=== PATIENT | male | born 1950 | race Caucasian/White ===

== ENCOUNTER 2017-05-10 02:31 | Emergency (ER) | payer MEDICARE, MEDICAID ==
[2017-05-10] MEDS ORDERED: HYDROmorphone 1 MG/ML Syringe IVPUSH ONE (03:18)
[2017-05-10] MEDS ORDERED: Ondansetron 4 MG/2 ML SDV IV ONE (03:18)
[2017-05-10] MEDS ORDERED: Iopamidol 612 MG/ML 100 ML Bottle IVPUSH ONE ×2 (03:44→03:45)
--- NOTE | 2017-05-10 03:44 | EDM.PDOC ---
[id number]: ABD PAIN Time Seen by Provider: 05/10/17 02:45 Source of Information: Reports: Patient History Limitations: Reports: No Limitations - History of Present Illness INITIAL COMMENTS - FREE TEXT/NARRATIVE: ED with c/o severe abdominal pain and cramping, started after supper eating pork chop. worsened after eating peanut butter sandwich. Nausea no vomiting. No fever. Small bm tonight. Hx colon cancer with resection and reanastamosis. Gallbladder removed with repair surgery. Onset: Today Bilateral Abdominal Pain Score (Numeric/FACES): 7 - Related Data Allergies Allergy/AdvReac Type Severity Reaction Status Date / Time No Known Allergies Allergy Verified 05/15/17 14:14 Home Meds: Home Meds Aspirin [Adult Low Dose Aspirin EC] 81 mg PO DAILY 03/26/14 [History] Multivitamin with Minerals [Multivitamins with Minerals] 1 each PO DAILY [History] Omeprazole 20 mg PO DAILY 03/26/14 [History] Acetaminophen [Tylenol Extra Strength] 1 tab PO Q6H 05/05/16 [History] Diltiazem HCl [Cartia Xt] 1 tab PO DAILY 05/05/16 [History] Ibuprofen 1 tab PO Q6H 05/05/16 [History] atorvaSTATin [Lipitor] 1 tab PO BEDTIME 05/05/16 [History] Glucosamine/D3/Boswellia Paula [Osteo Bi-Flex Tablet] 1 tab PO BEDTIME 11/13/16 [History] Past Medical History - Past Health History Medical/Surgical History: Denies Medical/Surgical History HEENT History: Reports: None Cardiovascular History: Reports: Afib, High Cholesterol, Other (See Below) Other Cardiovascular History: LEG EDEMA Respiratory History: Reports: Bronchitis, Recurrent Gastrointestinal History: Reports: Other (See Below) Other Gastrointestinal History: hernia Genitourinary History: Reports: None Musculoskeletal History: Reports: Arthritis, Fracture Other Musculoskeletal History: nasal fx and left great toe fx, fx left ankle and right wrist. skull fx Neurological History: Reports: Migraines Psychiatric History: Reports: Addiction Other Psychiatric History: TOBACCO ABUSE Endocrine/Metabolic History: Reports: None Hematologic History: Reports: None Immunologic History: Reports: None Oncologic (Cancer) History: Reports: Colon Dermatologic History: Reports: None - Infectious Disease History Infectious Disease History: Reports: None - Past Surgical History Head Surgeries/Procedures: Reports: None HEENT Surgical History: Reports: None GI Surgical History: Reports: Cholecystectomy, Colonoscopy, Colostomy, Hernia Repair/Other, Polypectomy, Other (See Below) Social & Family History - Family History Family Medical History: Noncontributory - Tobacco Use Smoking Status *Q: Current Every Day Smoker Years of Tobacco use: 5 Packs/Tins Daily: 0.2 Used Tobacco, but Quit: No Month Tobacco Last Used: oct Second Hand Smoke Exposure: No - Caffeine Use Caffeine Use: Reports: Coffee, Soda Other Caffeine Use: 3 cups coffee, 4 pop daily - Alcohol Use Days Per Week of Alcohol Use: 0 - Recreational Drug Use Recreational Drug Use: No ED ROS GENERAL - Review of Systems Review Of Systems: ROS reveals no pertinent complaints other than HPI. ED EXAM, GI/ABD - Physical Exam Exam: See Below Exam Limited By: No Limitations General Appearance: Alert, Mild Distress Eyes: Bilateral: EOMI Ears: Normal External Exam Nose: Normal Inspection Throat/Mouth: Normal Inspection Head: Atraumatic, Other Neck: Normal Inspection Respiratory/Chest: No Respiratory Distress, Lungs Clear Cardiovascular: Normal Peripheral Pulses, Regular Rate, Rhythm GI/Abdominal Exam: No Abnormal Bruit (hyperactive on left, hypoactive and tympanic on right. Distended. Firm around previous stoma site. ) Course - Vital Signs Last Recorded V/S: Last Vital Signs Temp 97.8 F 05/10/17 05:37 Pulse 56 L 05/10/17 05:37 Resp 20 05/10/17 05:37 BP 124/74 05/10/17 05:37 Pulse Ox 97 05/10/17 05:37 - Orders/Labs/Meds Labs: Laboratory Tests 05/10/17 05/10/17 05/10/17 Range/Units 03:20 03:20 04:59 WBC 11.4 H (5.0-10.0) 10^3/uL RBC 5.20 (4.6-6.2) 10^6/uL Hgb 15.8 (14.0-18.0) g/dL Hct 46.9 (40.0-54.0) % MCV 90.2 (80-100) fL MCH 30.4 (27.0-34.0) pg MCHC 33.7 (33.0-35.0) g/dL Plt Count 218 (150-450) 10^3/uL Neut % (Auto) 65.3 (42.2-75.2) % Lymph % (Auto) 23.9 (20.5-50.1) % [place] % (Auto) 8.2 H (2-8) % Eos % (Auto) 2.2 (1.0-3.0) % Baso % (Auto) 0.4 (0.0-1.0) % Sodium 142 (135-145) mmol/L Potassium 4.0 (3.6-5.0) mmol/L Chloride 105 (101-111) mmol/L Carbon Dioxide 28.0 (21.0-31.0) mmol/L Anion Gap 13.0 BUN 13 (7-18) mg/dL Creatinine 1.1 (0.6-1.3) mg/dL Est Cr Clr Drug Dosing 70.05 mL/min Estimated GFR (MDRD) > 60 BUN/Creatinine Ratio 11.81 Glucose 99 (74-105) mg/dL Calcium 9.3 (8.4-10.2) mg/dl Total Bilirubin 0.5 (0.2-1.0) mg/dL AST 23 (10-42) IU/L ALT 23 (10-60) IU/L Alkaline Phosphatase 90 (42-121) IU/L Troponin I < 0.02 (0.00-0.02) ng/ml Total Protein 7.6 (6.7-8.2) g/dl Albumin 4.1 (3.2-5.5) g/dl Globulin 3.5 Albumin/Globulin Ratio 1.17 Amylase 36 (28-100) U/L Lipase 15 L (22-51) U/L Urine Color Yellow (YELLOW) Urine Appearance Clear (CLEAR) Urine pH 6.0 (5.0-9.0) Ur Specific [place] 1.010 (1.005-1.030) Urine Protein Negative (NEGATIVE) Urine Glucose (UA) Negative (NEGATIVE) Urine Ketones Negative (NEGATIVE) Urine Occult Blood Negative (NEGATIVE) Urine Nitrite Negative (NEGATIVE) Urine Bilirubin Negative (NEGATIVE) Urine Urobilinogen 0.2 (0.2-1.0) mg/dL Ur Leukocyte Esterase Negative (NEGATIVE) Urine RBC 0-5 /HPF Urine WBC 0-5 (0-5/HPF) /HPF Ur Epithelial Cells Occasional /HPF Urine Bacteria Few (0-FEW/HPF) /HPF Urine Mucus Few H /LPF Meds: Medications Discontinued Medications Generic Name Dose Route Start Last Admin Trade Name Dainelq PRN Reason Stop Dose Admin Hydromorphone HCl 0.5 mg 05/10/17 03:18 05/10/17 03:52 Dilaudid IVPUSH 05/10/17 03:19 0.5 mg ONETIME ONE Administration Iopamidol 100 ml 05/10/17 03:44 05/10/17 05:41 Isovue-300 (61%) IVPUSH 05/10/17 03:45 Not Given ONETIME ONE Iopamidol 100 ml 05/10/17 03:45 05/10/17 03:50 Isovue-300 (61%) IVPUSH 05/10/17 03:46 100 ml ONETIME ONE Administration Ondansetron HCl 4 mg 05/10/17 03:18 05/10/17 03:53 Zofran IV 05/10/17 03:19 4 mg ONETIME ONE Administration Departure - Departure Time of Disposition: 06:30 Disposition: DC/Tfer to Acute Hospital 02 Condition: Fair Clinical Impression: Small bowel obstruction - Discharge Information Forms: ED Department Discharge
[2017-05-10 03:48] LABS: CHLORIDE,CL 105 mmol/L (101-111); SODIUM,NA 142 mmol/L (135-145)
[2017-05-10 05:38] VITALS: BP 124/74
== END 2017-05-10 06:20 ==
LOC: DL.ED 02:31
DX: K56.60 Unspecified intestinal obstruction (principal); I48.91 Unspecified atrial fibrillation; E78.00 Pure hypercholesterolemia, unspecified; G43.909 Migraine, unspecified, not intractable, without status migrainosus; M19.90 Unspecified osteoarthritis, unspecified site; F17.210 Nicotine dependence, cigarettes, uncomplicated; Z90.49 Acquired absence of other specified parts of digestive tract; Z79.82 Long term (current) use of aspirin; Z79.899 Other long term (current) drug therapy; Z98.890 Other specified postprocedural states
CPT/HCPCS: 36415; 74177; 80053; 81001; 82150; 83690; 84484; 85025; 96374; 96375; 99285; J1170; J2405; Q9967

== ENCOUNTER 2017-07-02 06:44 | Inpatient (IN) | payer MEDICARE, OTHER, MEDICAID ==
[2017-07-02] MEDS: Lactated Ringers 1,000 ML IV SCH ×2 (07:30→10:44)
[2017-07-02] MEDS ORDERED: Midazolam 1 MG/ML 2 ML SDV ONE (07:47)
[2017-07-02] MEDS ORDERED: fentaNYL 100 MCG/2 ML SDV ONE ×2 (07:47→08:06)
[2017-07-02] MEDS ORDERED: ePHEDrine 50 MG/ML SDV ONE (07:47)
[2017-07-02] MEDS ORDERED: Phenylephrine 1% 10 MG/ML SDV ONE (07:47)
[2017-07-02] MEDS ORDERED: Succinylcholine 200 MG/10 ML MDV ONE (07:48)
[2017-07-02] MEDS ORDERED: Rocuronium 50 MG/5 ML Vial ONE (07:48)
[2017-07-02] MEDS ORDERED: Propofol 200 MG/20 ML SDV ONE (07:48)
[2017-07-02] MEDS ORDERED: Lidocaine 1% 50 MG/5 ML Syringe ONE (07:48)
[2017-07-02] MEDS ORDERED: Ketorolac 30 MG/ML SDV ONE (07:49)
[2017-07-02] MEDS ORDERED: Dexamethasone 4 MG/ML SDV ONE (07:49)
[2017-07-02] MEDS ORDERED: Ondansetron 4 MG/2 ML SDV ONE (07:49)
[2017-07-02] MEDS: Acetaminophen/oxyCODONE 325-5 MG Tab PO PRN ×3 (10:53→22:43)
[2017-07-02] MEDS: Morphine 4 MG/ML Syringe IVPUSH PRN ×4 (13:31→23:18)
[2017-07-02] MEDS: Sodium Chloride 0.9% 1,000 ML IV SCH (15:50)
--- NOTE | 2017-07-02 19:04 | OR ---
DATE: 07/02/2017 PREOPERATIVE DIAGNOSIS: Incisional hernia. POSTOPERATIVE DIAGNOSIS: Incisional hernia. PROCEDURE: Open repair of incisional hernia. ANESTHESIA: General. ESTIMATED BLOOD LOSS: Minimal. SPECIMEN: Hernia sac. INDICATION FOR PROCEDURE: This 66-year-old male had a colon cancer resected with an end colostomy. He then had a colostomy takedown to reattach him in continuity and has developed an incisional hernia at the ostomy takedown site. Two months ago, he had an episode where the hernia became incarcerated, and he was sent from [place] to [facility] for evaluation. They reduced the hernia and set him up for a hernia repair later, but this could be done in [place] instead of going all the way back to [facility]. OPERATIVE FINDINGS: Incisional hernia. PROCEDURE IN DETAIL: After adequate preparation, a transverse incision was made over the prior ostomy site. The scar area of the ostomy itself was cored out. This was taken down to the hernia sac which was then dissected free from the subcutaneous tissues. The hernia sac was opened, and some of the filmy adhesions of the bowel that were in the hernia sac which actually were quite significant were freed up, so that the small bowel could be returned back into the abdomen. The hernia sac was dissected free from the fascial edges, and the underlying attachment of the small bowel to the posterior rectus sheath was dissected free. This allowed adequate margins for closure of this defect without mesh. The hernia itself measured about 6 cm. Interrupted #1 Prolene sutures were used to close the muscle layer full-thickness in one layer. This took approximately 10 or 12 interrupted sutures. There was minimal bleeding throughout the case. No other complications. The subcutaneous hernia space was closed with 3-0 Vicryl, and Monocryl was used for the skin. The patient was taken to recovery room. [facility] /[id number]
[2017-07-02] MEDS: Ondansetron 4 MG/2 ML SDV IV PRN (21:11)
[2017-07-03] MEDS: Sodium Chloride 0.9% 1,000 ML IV SCH ×2 (02:02→12:36)
[2017-07-03] MEDS: Morphine 4 MG/ML Syringe IVPUSH PRN ×4 (02:12→13:39)
[2017-07-03] MEDS: Acetaminophen/oxyCODONE 325-5 MG Tab PO PRN ×4 (03:43→23:30)
[2017-07-03] MEDS: Ondansetron 4 MG/2 ML SDV IV PRN ×2 (07:33→19:49)
--- NOTE | 2017-07-03 08:58 | PCM.SN ---
- Free Text/Narrative Note: Pain still needs IV Morphine for control. Frequent burping and only tolerates PO liquids. Some ambulation but with accompanied nausea. A/ Stable POD#1 P/ Will still keep today until PO and pain controlled better.
[2017-07-03] MEDS: Sodium Chloride 0.9% 10 ML Syringe FLUSH PRN ×2 (13:58→19:49)
[2017-07-03] MEDS ORDERED: Succinylcholine 200 MG/10 ML MDV IV ONE (14:47)
[2017-07-03] MEDS ORDERED: Rocuronium 50 MG/5 ML Vial IV ONE (14:47)
[2017-07-03] MEDS ORDERED: Ketorolac 30 MG/ML SDV IVPUSH ONE (14:47)
[2017-07-03] MEDS ORDERED: Dexamethasone 4 MG/ML SDV IV ONE (14:47)
[2017-07-03] MEDS ORDERED: Midazolam 1 MG/ML 2 ML SDV IV ONE (14:47)
[2017-07-03] MEDS ORDERED: fentaNYL 100 MCG/2 ML SDV IV ONE (14:47)
[2017-07-03] MEDS ORDERED: Propofol 200 MG/20 ML SDV IV ONE (14:47)
[2017-07-03] MEDS ORDERED: Ondansetron 4 MG/2 ML SDV IV ONE (14:47)
[2017-07-03] MEDS ORDERED: Magnesium Hydroxide 400 MG/5 ML Susp 30 ML Cup PO ONE (22:08)
[2017-07-04] MEDS ORDERED: Sodium Chloride 0.9% 1,000 ML IV ONE (01:35)
[2017-07-04] MEDS: Morphine 4 MG/ML Syringe IVPUSH PRN (01:50)
--- NOTE | 2017-07-04 01:52 | PCM.SN ---
- Free Text/Narrative Note: Tonight this patient is now very distended, peripherally cool with moderate abdominal pain. Is POD#2 from incisional hernia repair. Abdominal xray shoes large amount of free air. Mostly likely has enterotomy leak. Could operate on him here at [facility] but do not have adequate post operative ventilator capability. Will transfer to [facility] in [place]. Dr Mueller accepted transfer.
[2017-07-04] MEDS ORDERED: Midazolam 1 MG/ML 2 ML SDV IV ONE (02:14)
[2017-07-04] MEDS ORDERED: Dexamethasone 4 MG/ML SDV IV ONE (02:14)
[2017-07-04] MEDS ORDERED: Ketorolac 30 MG/ML SDV IVPUSH ONE (02:14)
[2017-07-04] MEDS ORDERED: Succinylcholine 200 MG/10 ML MDV IV ONE (02:14)
[2017-07-04] MEDS ORDERED: Ondansetron 4 MG/2 ML SDV IV ONE (02:14)
[2017-07-04] MEDS ORDERED: Propofol 200 MG/20 ML SDV IV ONE (02:14)
[2017-07-04] MEDS ORDERED: Rocuronium 50 MG/5 ML Vial IV ONE (02:14)
[2017-07-04] MEDS ORDERED: fentaNYL 100 MCG/2 ML SDV IV ONE (02:14)
[2017-07-04 02:49] VITALS: BP 100/70
--- NOTE | 2017-07-04 11:34 | DISCH ---
INTRODUCTION: This 66-year-old male has a past medical history of sigmoid colon resection for carcinoma, this was initially done as a Michelle's procedure with an end colostomy. The colostomy was eventually taken down and reattached to incontinence. The patient developed a midline ventral hernia which was then repaired using mesh. Two months ago, he presented to [place] with incarcerated small bowel and ostomy site hernia and was transferred [facility], they reduced the hernia, and at that time, elected not to fix the hernia. He presented [facility], and in evaluation I felt this would be reasonable enough to repair as the patient has had a few episodes of small bowel obstruction symptoms. PAST MEDICAL HISTORY: Significant for his colon cancer. Workup to date seems to be clear. PAST SURGICAL HISTORY: Include besides the above colon resection, cholecystectomy. PHYSICAL EXAMINATION: Heart: Clear. Heart is normal sinus rhythm. Lungs: Clear. Abdomen: Soft. He has a palpable bulge in the ostomy site just to the left of the midline. Extremities: Normal. Neurologic: Intact. HOSPITAL COURSE: This patient was admitted to the hospital on 07/02 and underwent an open incisional hernia repair. The case seemed to go fairly well. There was only minimal adhesions except for around the fascial edge where there was some bowel stuck to the prior mesh replacement of the ventral hernia. This was able to be freed up and interrupted #1 Prolene sutures were used to close this incision. Postoperatively, the patient seemed stable and fine until the morning of 07/03 when he had increased distention and mild abdominal pain. The patient however did not have a fever. His p.o. liquid intake was fine and he was advanced to a regular diet. By the evening however of 07/03, the patient was markedly distended. Examination showed that he was tympanitic throughout. White blood cell count was normal at that time, as was his hemoglobin, but the KUB and upright abdominal series x-ray showed massive amount of free air. This would indicate he has an enterotomy somewhere, either an enterotomy was made while freeing up the bowel sharply from the fascial edges or some of the bowel was caught in the closure stitches of the hernia. This patient however needs to be transferred as we could perform a surgery here, exploratory laparotomy to evaluate this. However, postoperatively, there was a significant chance that he may be ventilator dependent which is unavailable here at [place]. I contacted [facility] at [place]. Dr. Mueller is the surgeon applications project manager, and accepted the patient. He was transferred by ground ambulance to [facility]. [facility] /[id number]
--- NOTE | 2017-07-13 10:27 | EKG ---
07/02/2017 - SURESH POLLOCK - FINDINGS: EKG showed normal sinus rhythm. QT interval is prolonged. There is Q-wave in the inferior leads suggestive of prior myocardial infarction. Nonspecific T-wave changes in the anteroseptal leads. [facility] /[id number]
== END 2017-07-04 02:15 | disposition home or self-care (01) | DRG 354 ==
LOC: DL.SDS 06:44 → EDSTATUS 08:00 → DL.MS 10:45
PROVIDERS: ADMIT Surgery; ATTEND Surgery
PROC: 0WQF0ZZ Repair Abdominal Wall, Open Approach (ICD-10-PCS; principal; 2017-07-02)
DX: K43.0 Incisional hernia with obstruction, without gangrene (principal); K91.89 Other postprocedural complications and disorders of digestive system; Z85.038 Personal history of other malignant neoplasm of large intestine; Z79.82 Long term (current) use of aspirin; Z79.899 Other long term (current) drug therapy
CPT/HCPCS: 93005; 00830; 93010; J7120 ×2; 36415; 49560; 74020; 85027; 88302; A9270-GY; J0330; J1100; J1885; J2250; J2270; J2405; J2704; J3010; J7030; J7050

== ENCOUNTER 2018-02-08 04:04 | Emergency (ER) | payer MEDICARE, OTHER, MEDICAID ==
[2018-02-08 04:13] VITALS: BP 124/78
--- NOTE | 2018-02-08 04:38 | EDM.PDOC ---
<Karen Walsh Wiley - Last Filed: 02/08/18 06:50> ED HPI GENERAL MEDICAL PROBLEM - General Chief Complaint: Flank Pain Stated Complaint: BACK/KIDNEY PAIN [id number] Time Seen by Provider: 02/08/18 04:31 Source of Information: Reports: Patient, RN Notes Reviewed History Limitations: Reports: No Limitations - History of Present Illness INITIAL COMMENTS - FREE TEXT/NARRATIVE: ED with c/o left flank pain since midnight. Pain previously on right, worse with walking, tonight noted while lying in bed. Attempted ibuprofen but after one hour pain not improved. Extensive hx of bowel surgeries for CA obstruction. Most recent in June following hernia repair where "bowel nicked " Patient states was septic and on dialysis x4 days. Pain tonight not noted to be changed by activity. No fever or chills. No difficulty with urination, Colostomy normal. In clinic Sunday for "staph infection" on abdominal graft site. Left Lower Flank Pain Score (Numeric/FACES): 6 - Related Data Allergies Allergy/AdvReac Type Severity Reaction Status Date / Time No Known Allergies Allergy Verified 02/08/18 04:13 Home Meds: Home Meds Multivitamin with Minerals [Multivitamins with Minerals] 1 each PO DAILY [History] Acetaminophen [Tylenol Extra Strength] 1 tab PO Q6H 05/05/16 [History] Diltiazem HCl [Cartia Xt] 1 tab PO DAILY 05/05/16 [History] Ibuprofen 1 tab PO Q6H 05/05/16 [History] atorvaSTATin [Lipitor] 1 tab PO BEDTIME 05/05/16 [History] Aspirin 1 tab PO DAILY 02/08/18 [History] Cephalexin 1 cap PO TID 02/08/18 [History] Metoprolol Tartrate 1 tab PO BID 02/08/18 [History] Past Medical History - Past Health History Medical/Surgical History: Denies Medical/Surgical History HEENT History: Reports: Impaired Vision Other HEENT History: WEARS CORRECTIVE LENS. MISSING ALL OF HIS TEETH Cardiovascular History: Reports: Afib, High Cholesterol, Other (See Below) Other Cardiovascular History: LEG EDEMA Respiratory History: Reports: Bronchitis, Recurrent, Pneumonia, Recurrent Gastrointestinal History: Reports: Colon Polyp, GERD, Other (See Below) Other Gastrointestinal History: INCISIONAL hernia. HX OF COLON CARCINOMA. S/P COLOSTOMY Genitourinary History: Reports: None Musculoskeletal History: Reports: Arthritis, Fracture Other Musculoskeletal History: nasal fx and left great toe fx, fx left ankle and right wrist. skull fx Neurological History: Reports: Head Trauma, Migraines Psychiatric History: Reports: Addiction, Other (See Below) Other Psychiatric History: TOBACCO ABUSE Endocrine/Metabolic History: Reports: Obesity/BMI 30+ Hematologic History: Reports: None Immunologic History: Reports: None Oncologic (Cancer) History: Reports: Colon Dermatologic History: Reports: None - Infectious Disease History Infectious Disease History: Reports: None - Past Surgical History Head Surgeries/Procedures: Reports: None HEENT Surgical History: Reports: Oral Surgery Cardiovascular Surgical History: Reports: None Respiratory Surgical History: Reports: None GI Surgical History: Reports: Cholecystectomy, Colon, Colonoscopy, Colostomy, EGD, Hernia Repair/Other, Polypectomy, Other (See Below) Other GI Surgeries/Procedures: colostomy reversal, colon resection Male Surgical History: Reports: None Endocrine Surgical History: Reports: None Neurological Surgical History: Reports: None Musculoskeletal Surgical History: Reports: None Oncologic Surgical History: Reports: None Dermatological Surgical History: Reports: None Social & Family History - Family History Family Medical History: Noncontributory - Tobacco Use Smoking Status *Q: Unknown Ever Smoked Second Hand Smoke Exposure: No - Caffeine Use Caffeine Use: Reports: Coffee, Soda Other Caffeine Use: 3 cups coffee, 4 pop daily - Recreational Drug Use Recreational Drug Use: No ED ROS GENERAL - Review of Systems Review Of Systems: ROS reveals no pertinent complaints other than HPI. ED EXAM, RENAL/ - Physical Exam Exam: See Below Exam Limited By: No Limitations General Appearance: Alert, No Apparent Distress (changes position easily, constant chatter. ) Eye Exam: Bilateral Eye: EOMI Ears: Normal External Exam, Normal TMs Throat/Mouth: Normal Inspection Head: Atraumatic, Normocephalic Neck: Normal Inspection Respiratory/Chest: No Respiratory Distress, Lungs Clear, Normal Breath Sounds Cardiovascular: Normal Peripheral Pulses, Regular Rate, Rhythm GI/Abdominal: Normal Bowel Sounds, Soft, Non-Tender, Other (colostomy lower mid abdomen, green liquid stool. Muslitple surgical scars. ) Back Exam: No: CVA Tenderness (L) (tender below flank area), CVA Tenderness (R) Extremities: Normal Range of Motion, Non-Tender, No Pedal Edema Neurological: Alert, Oriented, CN II-XII Intact, Normal Cognition, Normal Gait, No Motor/Sensory Deficits Psychiatric: Normal Affect, Normal Mood Skin Exam: Warm, Dry, Wound/Incision (skin graft abdomen upper left 3 large clear fluid filled blisters, no open areas weepig. donor graft sites on legs clear heqaled ) Course - Vital Signs Last Recorded V/S: Last Vital Signs Temp 37.1 C 02/08/18 04:12 Pulse 82 02/08/18 04:12 Resp 21 H 02/08/18 04:12 BP 124/78 02/08/18 04:12 Pulse Ox 99 02/08/18 04:12 - Orders/Labs/Meds Orders: Active Orders 24 hr Category Date Time Status Abdomen Pelvis wo Cont [CT] Urgent Exams 02/08/18 07:13 Ordered CULTURE BLOOD [BC] Stat Lab 02/08/18 04:50 Received UA W/MICROSCOPIC [URIN] Stat Lab 02/08/18 06:59 Ordered Labs: Laboratory Tests 02/08/18 02/08/18 02/08/18 Range/Units 04:50 04:50 04:50 WBC 11.7 H (5.0-10.0) 10^3/uL RBC 4.51 L (4.6-6.2) 10^6/uL Hgb 13.5 L D (14.0-18.0) g/dL Hct 41.1 (40.0-54.0) % MCV 91.1 (80-100) fL MCH 29.9 (27.0-34.0) pg MCHC 32.8 L (33.0-35.0) g/dL Plt Count 262 (150-450) 10^3/uL Neut % (Auto) 60.9 (42.2-75.2) % Lymph % (Auto) 26.4 (20.5-50.1) % [place] % (Auto) 8.2 H (2-8) % Eos % (Auto) 4.0 H (1.0-3.0) % Baso % (Auto) 0.5 (0.0-1.0) % Sodium 137 (135-145) mmol/L Potassium 3.9 (3.6-5.0) mmol/L Chloride 107 (101-111) mmol/L Carbon Dioxide 24.0 (21.0-31.0) mmol/L Anion Gap 9.9 BUN 14 (7-18) mg/dL Creatinine 1.5 H (0.6-1.3) mg/dL Est Cr Clr Drug Dosing 53.89 mL/min Estimated GFR (MDRD) 47 BUN/Creatinine Ratio 9.33 Glucose 90 (74-105) mg/dL Lactic Acid 0.9 (0.5-2.2) mmol/L Calcium 8.7 (8.4-10.2) mg/dl Magnesium 2.0 (1.8-2.5) mg/dL Total Bilirubin 0.4 (0.2-1.0) mg/dL AST 33 (10-42) IU/L ALT 39 (10-60) IU/L Alkaline Phosphatase 105 (42-121) IU/L Total Protein 7.8 (6.7-8.2) g/dl Albumin 3.9 (3.2-5.5) g/dl Globulin 3.9 Albumin/Globulin Ratio 1.00 Amylase 45 (28-100) U/L Urine Color (YELLOW) Urine Appearance (CLEAR) Urine pH (5.0-9.0) Ur Specific [place] (1.005-1.030) Urine Protein (NEGATIVE) Urine Glucose (UA) (NEGATIVE) Urine Ketones (NEGATIVE) Urine Occult Blood (NEGATIVE) Urine Nitrite (NEGATIVE) Urine Bilirubin (NEGATIVE) Urine Urobilinogen (0.2-1.0) mg/dL Ur Leukocyte Esterase (NEGATIVE) Urine RBC /HPF Urine WBC (0-5/HPF) /HPF Ur Epithelial Cells /HPF Urine Bacteria (0-FEW/HPF) /HPF 02/08/18 Range/Units 06:59 WBC (5.0-10.0) 10^3/uL RBC (4.6-6.2) 10^6/uL Hgb (14.0-18.0) g/dL Hct (40.0-54.0) % MCV (80-100) fL MCH (27.0-34.0) pg MCHC (33.0-35.0) g/dL Plt Count (150-450) 10^3/uL Neut % (Auto) (42.2-75.2) % Lymph % (Auto) (20.5-50.1) % [place] % (Auto) (2-8) % Eos % (Auto) (1.0-3.0) % Baso % (Auto) (0.0-1.0) % Sodium (135-145) mmol/L Potassium (3.6-5.0) mmol/L Chloride (101-111) mmol/L Carbon Dioxide (21.0-31.0) mmol/L Anion Gap BUN (7-18) mg/dL Creatinine (0.6-1.3) mg/dL Est Cr Clr Drug Dosing mL/min Estimated GFR (MDRD) BUN/Creatinine Ratio Glucose (74-105) mg/dL Lactic Acid (0.5-2.2) mmol/L Calcium (8.4-10.2) mg/dl Magnesium (1.8-2.5) mg/dL Total Bilirubin (0.2-1.0) mg/dL AST (10-42) IU/L ALT (10-60) IU/L Alkaline Phosphatase (42-121) IU/L Total Protein (6.7-8.2) g/dl Albumin (3.2-5.5) g/dl Globulin Albumin/Globulin Ratio Amylase (28-100) U/L Urine Color Yellow (YELLOW) Urine Appearance Clear (CLEAR) Urine pH 5.5 (5.0-9.0) Ur Specific [place] 1.010 (1.005-1.030) Urine Protein Negative (NEGATIVE) Urine Glucose (UA) Negative (NEGATIVE) Urine Ketones Negative (NEGATIVE) Urine Occult Blood Small H (NEGATIVE) Urine Nitrite Negative (NEGATIVE) Urine Bilirubin Negative (NEGATIVE) Urine Urobilinogen 0.2 (0.2-1.0) mg/dL Ur Leukocyte Esterase Negative (NEGATIVE) Urine RBC 0-5 /HPF Urine WBC 0-5 (0-5/HPF) /HPF Ur Epithelial Cells Few /HPF Urine Bacteria Many H (0-FEW/HPF) /HPF Meds: Medications Discontinued Medications Generic Name Dose Route Start Last Admin Trade Name Freq PRN Reason Stop Dose Admin Cyclobenzaprine HCl 10 mg 02/08/18 09:17 Flexeril PO 02/08/18 09:18 ONETIME ONE Ketorolac Tromethamine 30 mg 02/08/18 09:17 Toradol IVPUSH 02/08/18 09:18 ONETIME ONE Morphine Sulfate 2 mg 02/08/18 05:04 02/08/18 05:13 Morphine IVPUSH 02/08/18 05:05 2 mg ONETIME ONE Administration Ondansetron HCl 4 mg 02/08/18 05:04 02/08/18 05:13 Zofran Odt PO 02/08/18 05:05 4 mg ONETIME ONE Administration Departure - Departure Disposition: Home, Self-Care 01 Clinical Impression: Low back strain Qualifiers: Encounter type: initial encounter Qualified Code(s): S39.012A - Strain of muscle, fascia and tendon of lower back, initial encounter - Discharge Information Instructions: Muscle Strain, Hoir-de-Lqrf Forms: ED Department Discharge Care Plan Goals: The patient was advised of the examination, lab and CT results during the visit. The patient was given IV and oral medications for temporary symptom relief. The patient was encouraged to attempt some gentle stretching exercises. If the patient has any additional symptoms or concerns, the patient should follow-up with his primary care facility or return to the emergency department. - My Orders Last 24 Hours: My Active Orders 02/08/18 07:13 Abdomen Pelvis wo Cont [CT] Urgent - Assessment/Plan Last 24 Hours: My Active Orders 02/08/18 07:13 Abdomen Pelvis wo Cont [CT] Urgent <John Salas - Last Filed: 02/08/18 09:20> Departure - Departure Time of Disposition: 09:18 Condition: Fair
[2018-02-08] MEDS ORDERED: Ondansetron 4 MG Tab.DIS PO ONE (05:04)
[2018-02-08] MEDS ORDERED: Morphine 2 MG/ML Syringe IVPUSH ONE (05:04)
[2018-02-08] MEDS ORDERED: Cyclobenzaprine 10 MG Tab PO ONE (09:17)
[2018-02-08] MEDS ORDERED: Ketorolac 30 MG/ML SDV IVPUSH ONE (09:17)
[2018-02-08] MEDS ORDERED: Ondansetron 4 MG Tab.DIS ONE (09:24)
== END 2018-02-08 09:36 | disposition home or self-care (01) ==
LOC: DL.ED 04:04
DX: S39.012A Strain of muscle, fascia and tendon of lower back, initial encounter (principal); E78.00 Pure hypercholesterolemia, unspecified; Z79.899 Other long term (current) drug therapy; Z79.82 Long term (current) use of aspirin; X58.XXXA Exposure to other specified factors, initial encounter
CPT/HCPCS: 36415; 74176; 80053; 81001; 82150; 83605; 83735; 85025; 87040; 96374; 96375; 99284; A9270; J1885; J2270

== ENCOUNTER 2019-02-18 15:52 | Emergency (ER) | payer MEDICARE, OTHER, MEDICAID ==
[2019-02-18 16:02] VITALS: BP 135/82
--- NOTE | 2019-02-18 17:26 | EDM.PDOC ---
ED HPI GENERAL MEDICAL PROBLEM - General Chief Complaint: Skin Complaint Stated Complaint: PAIN IN BUTT Time Seen by Provider: 02/18/19 17:00 Source of Information: Reports: Patient, Family, RN, RN Notes Reviewed History Limitations: Reports: No Limitations - History of Present Illness INITIAL COMMENTS - FREE TEXT/NARRATIVE: Pt to ER with c/o sore rectum. Patient states he was seen in the clinic earlier in the week with same c/o. Patient was prescribed Nystatin ointment for a skin yeast infection around the rectum. Patient states this is not improving. Onset: Gradual Rectal Pain Score (Numeric/FACES): 7 - Related Data Allergies Allergy/AdvReac Type Severity Reaction Status Date / Time No Known Allergies Allergy Verified 02/18/19 15:59 Home Meds: Home Meds Multivitamin with Minerals [Multivitamins with Minerals] 1 each PO DAILY [History] Acetaminophen [Tylenol Extra Strength] 1 tab PO Q6H 05/05/16 [History] Diltiazem HCl [Cartia Xt] 180 mg PO DAILY 05/05/16 [History] Ibuprofen 400 mg PO Q6H 05/05/16 [History] atorvaSTATin [Lipitor] 10 mg PO DAILY 05/05/16 [History] Aspirin 325 mg PO DAILY 02/08/18 [History] Metoprolol Tartrate 25 mg PO BID 02/08/18 [History] Past Medical History - Past Health History Medical/Surgical History: Denies Medical/Surgical History HEENT History: Reports: Impaired Vision Other HEENT History: WEARS CORRECTIVE LENS. MISSING ALL OF HIS TEETH Cardiovascular History: Reports: Afib, High Cholesterol, Other (See Below) Other Cardiovascular History: LEG EDEMA Respiratory History: Reports: Bronchitis, Recurrent, Pneumonia, Recurrent Gastrointestinal History: Reports: Colon Polyp, GERD, Other (See Below) Other Gastrointestinal History: INCISIONAL hernia. HX OF COLON CARCINOMA. S/P COLOSTOMY Genitourinary History: Reports: None Musculoskeletal History: Reports: Arthritis, Fracture Other Musculoskeletal History: nasal fx and left great toe fx, fx left ankle and right wrist. skull fx Neurological History: Reports: Head Trauma, Migraines Psychiatric History: Reports: Addiction, Other (See Below) Other Psychiatric History: TOBACCO ABUSE Endocrine/Metabolic History: Reports: Obesity/BMI 30+ Hematologic History: Reports: None Immunologic History: Reports: None Oncologic (Cancer) History: Reports: Colon Dermatologic History: Reports: None - Infectious Disease History Infectious Disease History: Reports: None - Past Surgical History Head Surgeries/Procedures: Reports: None HEENT Surgical History: Reports: Oral Surgery Cardiovascular Surgical History: Reports: None Respiratory Surgical History: Reports: None GI Surgical History: Reports: Cholecystectomy, Colon, Colonoscopy, Colostomy, EGD, Hernia Repair/Other, Polypectomy, Other (See Below) Other GI Surgeries/Procedures: colostomy reversal, colon resection Male Surgical History: Reports: None Endocrine Surgical History: Reports: None Neurological Surgical History: Reports: None Musculoskeletal Surgical History: Reports: None Oncologic Surgical History: Reports: None Dermatological Surgical History: Reports: None Social & Family History - Family History Family Medical History: Noncontributory - Tobacco Use Smoking Status *Q: Never Smoker Second Hand Smoke Exposure: No - Caffeine Use Caffeine Use: Reports: Coffee Other Caffeine Use: 3 cups coffee, 4 pop daily - Recreational Drug Use Recreational Drug Use: No ED ROS GENERAL - Review of Systems Review Of Systems: ROS reveals no pertinent complaints other than HPI. ED EXAM, SKIN/RASH Exam: See Below Exam Limited By: No Limitations General Appearance: Alert, WD/WN, Moderate Distress Eye Exam: Bilateral Eye: EOMI, Normal Inspection Ears: Normal External Exam, Hearing Grossly Normal Nose: Normal Inspection Throat/Mouth: Normal Inspection, Normal Voice, No Airway Compromise Head: Atraumatic, Normocephalic Neck: Normal Inspection, Supple, Non-Tender, Full Range of Motion Respiratory/Chest: No Respiratory Distress, Lungs Clear, Normal Breath Sounds, No Accessory Muscle Use, Chest Non-Tender Cardiovascular: Normal Peripheral Pulses, Regular Rate, Rhythm, No Edema, No Gallop, No JVD, No Murmur, No Rub Peripheral Pulses: 2+: Radial (L), Radial (R) GI/Abdominal: Normal Bowel Sounds, Soft, Non-Tender, No Organomegaly, No Distention, Other (large abdominal scarring from previous surgeries, skin grafting) Rectal (Males) Exam: Other (Erythema surrounding the anus). No: Hemorrhoids, Perirectal Abscess Back Exam: Normal Inspection, Full Range of Motion, NT Extremities: Normal Inspection, Normal Range of Motion, Non-Tender, No Pedal Edema, Normal Capillary Refill Neurological: Alert, Oriented, CN II-XII Intact, Normal Cognition, Normal Gait, Normal Reflexes, No Motor/Sensory Deficits Psychiatric: Normal Affect, Normal Mood Skin: Warm, Dry, Intact, Normal Color, No Rash, Other (Healed abdominal scarring , skin grafting) Location, Skin: Abdomen Lymphatic: No Adenopathy Course - Vital Signs Last Recorded V/S: Last Vital Signs Temp 98.7 F 02/18/19 16:01 Pulse 83 02/18/19 16:01 Resp 16 02/18/19 16:01 BP 135/82 02/18/19 16:01 Pulse Ox 97 02/18/19 16:01 Departure - Departure Time of Disposition: 17:25 Disposition: Home, Self-Care 01 Condition: Fair Clinical Impression: Hemorrhoids, internal, Yeast dermatitis - Discharge Information *PRESCRIPTION DRUG MONITORING PROGRAM REVIEWED*: No *COPY OF PRESCRIPTION DRUG MONITORING REPORT IN PATIENT PILI: No Instructions: Hemorrhoids, [id number], Skin Yeast Infection Referrals: Nanette Guevara MD [Primary Care Provider] - Forms: ED Department Discharge Additional Instructions: RX: Proctofoam, Diflucan Use medications as directed Follow up with your primary care facility if no improvement in 2 weeks May use TUCKS as directed Keep rectal area clean
== END 2019-02-18 17:30 | disposition home or self-care (01) ==
LOC: DL.ED 15:52
DX: K64.8 Other hemorrhoids (principal); B37.2 Candidiasis of skin and nail; I48.91 Unspecified atrial fibrillation; M19.90 Unspecified osteoarthritis, unspecified site; E66.9 Obesity, unspecified; Z90.49 Acquired absence of other specified parts of digestive tract; Z79.82 Long term (current) use of aspirin; Z79.899 Other long term (current) drug therapy
CPT/HCPCS: 99282

== ENCOUNTER 2019-02-24 15:07 | Emergency (ER) | payer MEDICARE, OTHER, MEDICAID ==
[2019-02-24 15:15] VITALS: BP 131/94
--- NOTE | 2019-02-24 15:15 | EDM.PDOC ---
ED HPI GENERAL MEDICAL PROBLEM - General Chief Complaint: Gastrointestinal Problem Stated Complaint: IN PAIN Time Seen by Provider: 02/24/19 15:15 Source of Information: Reports: Patient, Family (), Old Records, RN, RN Notes Reviewed History Limitations: Reports: No Limitations - History of Present Illness INITIAL COMMENTS - FREE TEXT/NARRATIVE: Pt presents to ER from home by POV with c/o severe rectal pain that began in 2018 shortly after take down of his colostomy at [facility]. In November 2018 the pain became worse, so he went to clinic and states he has been seen by Dr. Guevara twice and treated for possible hemorrhoids. He had no improvement, so he returned to clinic and was seen by Dr. Morales who treated him for possible hemorrhoids and prescribed Nystatin cream for yeast proctitis but again he had no improvement. He was seen here in the ER on 02/18/19 and diagnosed with possible internal hemorroids and treated with Tuck wipes, and oral Diflucan for yeast proctitis. Pt is upset that he has had no relief from the rectal pain, and no one has "even done a rectal exam". He denies diarrhea, constipation, bloody/black or tarry stools, or mucus in the stool. He has Hx of colon CA and previously had a colostomy. Duration: Week(s): (>12 weeks), Chronic, Constant Location: Reports: Other (Rectal) Quality: Reports: Ache, Burning, Pressure, Same as Previous Episode, Sharp Severity: Severe Improves with: Reports: None Worsens with: Reports: None Associated Symptoms: Reports: No Other Symptoms Rectal Pain Score (Numeric/FACES): 8 - Related Data Allergies Allergy/AdvReac Type Severity Reaction Status Date / Time No Known Allergies Allergy Verified 02/18/19 15:59 Home Meds: Home Meds Multivitamin with Minerals [Multivitamins with Minerals] 1 each PO DAILY [History] Acetaminophen [Tylenol Extra Strength] 1 tab PO Q6H 05/05/16 [History] Diltiazem HCl [Cartia Xt] 180 mg PO DAILY 05/05/16 [History] Ibuprofen 400 mg PO Q6H 05/05/16 [History] atorvaSTATin [Lipitor] 10 mg PO DAILY 05/05/16 [History] Aspirin 325 mg PO DAILY 02/08/18 [History] Metoprolol Tartrate 25 mg PO BID 02/08/18 [History] Past Medical History - Past Health History Medical/Surgical History: Denies Medical/Surgical History HEENT History: Reports: Impaired Vision Other HEENT History: WEARS CORRECTIVE LENS. MISSING ALL OF HIS TEETH Cardiovascular History: Reports: Afib, High Cholesterol, Other (See Below) Other Cardiovascular History: LEG EDEMA Respiratory History: Reports: Bronchitis, Recurrent, Pneumonia, Recurrent Gastrointestinal History: Reports: Colon Polyp, GERD, Other (See Below) Other Gastrointestinal History: INCISIONAL hernia. HX OF COLON CARCINOMA. S/P COLOSTOMY Genitourinary History: Reports: None Musculoskeletal History: Reports: Arthritis, Fracture Other Musculoskeletal History: nasal fx and left great toe fx, fx left ankle and right wrist. skull fx Neurological History: Reports: Head Trauma, Migraines Psychiatric History: Reports: Addiction, Other (See Below) Other Psychiatric History: TOBACCO ABUSE Endocrine/Metabolic History: Reports: Obesity/BMI 30+ Hematologic History: Reports: None Immunologic History: Reports: None Oncologic (Cancer) History: Reports: Colon Dermatologic History: Reports: None - Infectious Disease History Infectious Disease History: Reports: None - Past Surgical History Head Surgeries/Procedures: Reports: None HEENT Surgical History: Reports: Oral Surgery Cardiovascular Surgical History: Reports: None Respiratory Surgical History: Reports: None GI Surgical History: Reports: Cholecystectomy, Colon, Colonoscopy, Colostomy, EGD, Hernia Repair/Other, Polypectomy, Other (See Below) Other GI Surgeries/Procedures: colostomy reversal, colon resection Male Surgical History: Reports: None Endocrine Surgical History: Reports: None Neurological Surgical History: Reports: None Musculoskeletal Surgical History: Reports: None Oncologic Surgical History: Reports: None Dermatological Surgical History: Reports: None Social & Family History - Family History Family Medical History: Noncontributory - Caffeine Use Caffeine Use: Reports: Coffee Other Caffeine Use: 3 cups coffee, 4 pop daily - Living Situation & Occupation Living situation: Reports: , with Spouse Occupation: Retired ED ROS GENERAL - Review of Systems Review Of Systems: ROS reveals no pertinent complaints other than HPI. ED EXAM, GENERAL - Physical Exam Exam: See Below Exam Limited By: No Limitations General Appearance: Alert, WD/WN, Mild Distress (due to rectal pain) Head: Atraumatic, Normocephalic Respiratory/Chest: No Respiratory Distress, Lungs Clear, Normal Breath Sounds, No Accessory Muscle Use, Chest Non-Tender Cardiovascular: Normal Peripheral Pulses, Regular Rate, Rhythm, No Edema, No Gallop, No JVD, No Murmur, No Rub GI/Abdominal: Normal Bowel Sounds, Soft, Non-Tender (Male) Exam: Deferred Rectal (Males) Exam: Normal Rectal Tone, Tenderness (severe), Other (medium brown stool present). No: Hemorrhoids, Mass, Perirectal Abscess, Rectal Fissure Back Exam: Normal Inspection Extremities: Normal Inspection Neurological: Alert, Oriented, No Motor/Sensory Deficits Psychiatric: Normal Mood Skin Exam: Warm, Dry, Intact Course - Vital Signs Last Recorded V/S: Last Vital Signs Temp 36.7 C 02/24/19 15:14 Pulse 91 02/24/19 15:14 Resp 16 02/24/19 15:14 BP 131/94 H 02/24/19 15:14 Pulse Ox 95 02/24/19 15:14 - Orders/Labs/Meds Orders: Active Orders 24 hr Category Date Time Status Peripheral IV Care [RC] . DIRECTED Care 02/24/19 15:31 Active Abdomen Pelvis w Cont [CT] Stat Exams 02/24/19 16:14 Taken Sodium Chloride 0.9% [Normal Saline] 1,000 ml Med 02/24/19 16:16 Active IV .BOLUS Sodium Chloride 0.9% [Saline Flush] Med 02/24/19 15:31 Active 10 ml FLUSH ASDIRECTED PRN Peripheral IV Insertion Adult [OM.PC] Stat Oth 02/24/19 15:31 Ordered Medication Orders Sodium Chloride (Normal Saline) 1,000 mls @ 999 mls/hr IV .BOLUS ONE Stop: 02/24/19 17:16 Last Admin: 02/24/19 16:44 Dose: 999 mls/hr Sodium Chloride (Saline Flush) 10 ml FLUSH ASDIRECTED PRN PRN Reason: Keep Vein Open Last Admin: 02/24/19 15:41 Dose: 10 ml Labs: Laboratory Tests 02/24/19 02/24/19 02/24/19 Range/Units 15:38 15:38 15:38 WBC 12.9 H (5.0-10.0) 10^3/uL RBC 5.32 (4.6-6.2) 10^6/uL Hgb 15.5 D (14.0-18.0) g/dL Hct 47.0 (40.0-54.0) % MCV 88.3 (80-100) fL MCH 29.1 (27.0-34.0) pg MCHC 33.0 (33.0-35.0) g/dL Plt Count 288 (150-450) 10^3/uL Neut % (Auto) 63.3 (42.2-75.2) % Lymph % (Auto) 25.0 (20.5-50.1) % [place] % (Auto) 8.3 H (2-8) % Eos % (Auto) 2.9 (1.0-3.0) % Baso % (Auto) 0.5 (0.0-1.0) % Sodium 139 (135-145) mmol/L Potassium 3.7 (3.6-5.0) mmol/L Chloride 105 (101-111) mmol/L Carbon Dioxide 20.0 L (21.0-31.0) mmol/L Anion Gap 17.7 BUN 18 (7-18) mg/dL Creatinine 1.4 H (0.6-1.3) mg/dL Est Cr Clr Drug Dosing 54.44 mL/min Estimated GFR (MDRD) 51 BUN/Creatinine Ratio 12.85 Glucose 105 (74-105) mg/dL Calcium 9.2 (8.4-10.2) mg/dl Total Bilirubin 0.7 (0.2-1.0) mg/dL AST 40 (10-42) IU/L ALT 38 (10-60) IU/L Alkaline Phosphatase 107 (42-121) IU/L C-Reactive Protein 1.6 H (0.0-1.3) mg/dL Total Protein 8.1 (6.7-8.2) g/dl Albumin 4.1 (3.2-5.5) g/dl Globulin 4.0 Albumin/Globulin Ratio 1.03 Meds: Medications Generic Name Dose Route Start Last Admin Trade Name Freq PRN Reason Stop Dose Admin Sodium Chloride 1,000 mls @ 999 mls/hr 02/24/19 16:16 02/24/19 16:44 Normal Saline IV 02/24/19 17:16 999 mls/hr .BOLUS ONE Administration Sodium Chloride 10 ml 02/24/19 15:31 02/24/19 15:41 Saline Flush FLUSH 10 ml ASDIRECTED PRN Administration Keep Vein Open Discontinued Medications Generic Name Dose Route Start Last Admin Trade Name Danielq PRN Reason Stop Dose Admin Hydrocodone Bitart/Acetaminophen 1 tab 02/24/19 15:26 02/24/19 15:31 [place] 325-10 Mg PO 02/24/19 15:27 1 tab ONETIME ONE Administration Iopamidol 100 ml 02/24/19 15:32 02/24/19 16:28 Isovue-300 (61%) IVPUSH 02/24/19 15:33 100 ml ONETIME ONE Administration Lidocaine HCl 10 ml 02/24/19 15:24 02/24/19 15:31 Xylocaine 2% Jelly MUCMEM 02/24/19 15:25 10 ml ONETIME ONE Administration - Radiology Interpretation Free Text/Narrative:: CT Abd/Pelvis: no acute rectal/anal findings, large prostate per Rad. report. Departure - Departure Time of Disposition: 17:07 Disposition: Home, Self-Care 01 Condition: Fair Clinical Impression: Anal or rectal pain - Discharge Information *PRESCRIPTION DRUG MONITORING PROGRAM REVIEWED*: No *COPY OF PRESCRIPTION DRUG MONITORING REPORT IN PATIENT PILI: No Instructions: Proctitis, Anal Fissure, Adult Forms: ED Department Discharge Additional Instructions: Rx: Lidocaine 5% Ointment Rx: [place] 5mg/325mg *Take with a stool softener. Do not drive while under the influence of this medication. Follow up in clinic with Dr. Guevara for recheck and consideration of lower endoscopy for definitive diagnosis. - My Orders Last 24 Hours: My Active Orders 02/24/19 15:31 Peripheral IV Care [RC] . DIRECTED Sodium Chloride 0.9% [Saline Flush] 10 ml FLUSH ASDIRECTED PRN Peripheral IV Insertion Adult [OM.PC] Stat 02/24/19 16:14 Abdomen Pelvis w Cont [CT] Stat 02/24/19 16:16 Sodium Chloride 0.9% [Normal Saline] 1,000 ml IV .BOLUS - Assessment/Plan Last 24 Hours: My Active Orders 02/24/19 15:31 Peripheral IV Care [RC] . DIRECTED Sodium Chloride 0.9% [Saline Flush] 10 ml FLUSH ASDIRECTED PRN Peripheral IV Insertion Adult [OM.PC] Stat 02/24/19 16:14 Abdomen Pelvis w Cont [CT] Stat 02/24/19 16:16 Sodium Chloride 0.9% [Normal Saline] 1,000 ml IV .BOLUS
[2019-02-24] MEDS ORDERED: Lidocaine 2% Jelly 10 ML Urojet MUCMEM ONE (15:24)
[2019-02-24] MEDS ORDERED: Acetaminophen/HYDROcodone 325-10 MG Tab PO ONE (15:26)
[2019-02-24] MEDS ORDERED: Sodium Chloride 0.9% 10 ML Syringe FLUSH PRN (15:31)
[2019-02-24] MEDS ORDERED: Iopamidol 612 MG/ML 100 ML Bottle IVPUSH ONE (15:32)
[2019-02-24 16:09] LABS: ANION GAP 17.7
[2019-02-24] MEDS ORDERED: Sodium Chloride 0.9% 1,000 ML IV ONE (16:16)
--- NOTE | 2019-02-24 17:23 | CT ---
Clinical history: 68-year-old 145 pound male complaining of severe rectal pain who significantly has a history of "colon cancer February 2011 with resection/colostomy (takedown September 2018)" and now WBC 12,900. Cholecystectomy. Scan technique: Volume acquisition of data from the abdomen and pelvis obtained without oral contrast but during/after intravenous infusion 100 cc nonionic Isovue contrast (3 cc/s via injector) while the patient was lying supine on the Siemens multi slice scanner [place], [place]. All data archived in the PACS system for storage, reformatting axial/sagittal/coronal planes and study. Interpretation: 1. Abnormal inhomogeneously dense prostate gland and focal enlargement of the median lobe which distends into the base of the urinary bladder (small volume bladder with uniformly thick wall that may reflect chronic outlet obstruction. Negative kidneys. 2. Bilateral atrophy of the anterior abdominal rectus musculature with midline extension bowel and intraperitoneal fat but no incarceration or signs of mechanical bowel obstruction. Large pannus. No abdominal/pelvic mass lesion. No lymphadenopathy. 3. Surgical clips gallbladder fossa. Solitary 17 mm cyst dome right lobe of the liver, medially. Stomach, spleen, pancreas and adrenal glands unremarkable. Normal reniform size, axis and configuration bilaterally. No cortical mass, stones or obstruction. 4. Osteopenia but no sign of pathologic skeletal lesion, lumbar fracture or dislocation. Calcifications normal caliber aorta. 5. Normal cardiac silhouette. Lung bases clear. CONCLUSION: Abnormal prostate gland. PSA? Specifically no perianal or rectal mass lesion appreciated. No foreign bodies. No pelvic lymphadenopathy. No evidence for recurrent intraperitoneal or metastatic malignancy. Hepatic cyst.
== END 2019-02-24 17:19 | disposition home or self-care (01) ==
LOC: DL.ED 15:07
DX: K62.89 Other specified diseases of anus and rectum (principal); E78.00 Pure hypercholesterolemia, unspecified; K21.9 Gastro-esophageal reflux disease without esophagitis; Z79.82 Long term (current) use of aspirin; Z79.899 Other long term (current) drug therapy
CPT/HCPCS: 36415; 74177; 80053; 85025; 86140; 96360; 99284; A9270; J7030; Q9967